=== PATIENT | female | born 1985 | race Caucasian/White ===

== ENCOUNTER 2017-09-05 12:33 | Emergency (ER) | payer OTHER ==
[2017-09-05] MEDS ORDERED: ACETAMINOPHEN 325 MG TABLET (FP) PO ONE (13:02)
[2017-09-05] MEDS ORDERED: ACETAMINOPHEN 325 MG TABLET (FP) ONE (13:22)
[2017-09-05 13:26] LABS: URINE APPEARANCE SLCLOUDY; URINE BILIRUBIN NEGATIVE (NEGATIVE); URINE BLOOD NEGATIVE (NEGATIVE); URINE COLOR YELLOW; URINE GLUCOSE (UA) NEGATIVE (NEGATIVE); URINE KETONE NEGATIVE (NEGATIVE); URINE LEUK ESTERASE 2+ (NEGATIVE); URINE NITRITE NEGATIVE (NEGATIVE); URINE PROTEIN NEGATIVE (NEGATIVE); URINE UROBILINOGEN NEGATIVE mg/dL (0.2-1.0)
[2017-09-05 13:27] LABS: EPI CELLS RARE /HPF (FEW); URINE MUCUS MANY
[2017-09-05 13:27] LABS: BASO % 0.6 % (0-2.0); EOS % 0.3 % (0-4.5); HEMATOCRIT 41.9 % (32.4-45.2); HEMOGLOBIN 13.9 GM/dL (10.7-15.3); LYMPH % 16.1 % (8-40); MCH 30.5 pg (25.7-33.7); MCHC 33.2 g/dl (32.0-36.0); MEAN CELL VOLUME 91.6 fl (80-96); MEAN PLT VOLUME 6.2 fl (7.5-11.1); PLATELET COUNT 374 K/MM3 (134-434); RBC 4.58 M/mm3 (3.60-5.2); RDW 13.3 % (11.6-15.6); WHITE BLOOD COUNT 17.7 K/mm3 (4.0-10.0)
[2017-09-05 13:35] VITALS: BMI 35.6
--- NOTE | 2017-09-05 13:39 | PDOC ---
History of Present Illness - General Stated Complaint: ABD PAIN Time Seen by Provider: 09/05/17 12:54 History Source: Patient - History of Present Illness Timing/Duration: reports: constant, getting worse Past History - Past Medical History Allergies/Adverse Reactions: Allergies Allergy/AdvReac Type Severity Reaction Status Date / Time No Known Allergies Allergy Verified 09/05/17 13:07 Home Medications: Ambulatory Orders Doxycycline Hyclate 100 mg PO BID #28 capsule 09/05/17 Elrod Carbonate [Eskalith -] 300 mg PO DAILY 09/05/17 Trazodone HCl 100 mg PO HS 09/05/17 Anemia: Yes (NOT CURRENTLY TAKING) Asthma: Yes Cardiac Disorders: No CVA: No COPD: No Diabetes: No GI Disorders: No Disorders: No HTN: No Hypercholesterolemia: No Kidney Stones: No Seizures: No Thyroid Disease: No - Surgical History Cholecystectomy: Yes (IN 2009) - Reproductive History PID: No - Suicide/Smoking/Psychosocial Hx Smoking Status: Yes Smoking History: Current every day smoker Have you smoked in the past 12 months: Yes Number of Cigarettes Smoked Daily: 5 'Breaking Loose' booklet given: 05/20/14 Hx Alcohol Use: Yes Drug/Substance Use Hx: Yes Substance Use Type: Alcohol, Cocaine, Marijuana, Tranquilizers Hx Substance Use Treatment: Yes Abd/GI Specific PMHX - Complaint Specific PMHX Hepatitis: No Pancreatitis: No Review of Systems - Review of Systems Constitutional: No: Chills, Fever ABD/GI: Yes: Nausea, Abdominal cramping. No: Blood Streaked Bowels, Constipated , Diarrhea, Vomiting : No: Dysuria, Discharge, Flank Pain, Hematuria *Physical Exam - Physical Exam General Appearance: Yes: Appropriately Dressed. No: Apparent Distress HEENT: positive: Normal Voice Neck: positive: Supple Respiratory/Chest: negative: Respiratory Distress Female Pelvic Exam: positive: other (moderate amount of yellow discharge in vault w/ L adnexal and CMT, c/f PID) Gastrointestinal/Abdominal: positive: Normal Bowel Sounds, Tender (to suprapubic area diffusely). negative: Distended, Guarding, Rebound Musculoskeletal: negative: CVA Tenderness Integumentary: positive: Dry, Warm Neurologic: positive: Fully Oriented, Alert, Normal Mood/Affect ED Treatment Course - LABORATORY CBC & Chemistry Diagram: 09/05/17 13:15 09/05/17 13:15 Medical Decision Making - Medical Decision Making 09/05/17 13:04 32-year-old female , (s/p elective AB), here with lower abdominal pain. Patient reports pressure-like suprapubic pain since last night that is mostly constant, associated with nausea, no vomiting. Denies change in bowel movements , dysuria, hematuria, vag discharge fever or chills. States she missed last month, but started spotting last week, which only lasted for several days. Not sure if she is currently . Sexually active w/ new male partner x 3 months. Does not use condoms See exam Pelvic pain Concern for PID given exam findings, r/o TOA, less likely appy -pain control -labs -US -?CT 09/05/17 14:27 WBC of 17. Started on abx regimen for PID. Pt signed out to resident at this point pending ultrasound. Aware that if ultrasound is negative for TOA, patient should get CT rule out appy. If rest of workup unremarkable, patient to be treated for PID with doxy 2 weeks. No foul-smelling discharge at this time to suspect BV so will not add flagyl. Cxs sent 09/06/17 17:28 *DC/Admit/Observation/Transfer Diagnosis at time of Disposition: PID (acute pelvic inflammatory disease) - Discharge Dispostion Disposition: HOME - Prescriptions Prescriptions: Doxycycline Hyclate 100 mg PO BID #28 capsule - Referrals Referrals: Darya Clay [Primary Care Provider] - - Patient Instructions Printed Discharge Instructions: DI for Pelvic Inflammatory Disease Additional Instructions: Please return if any increase in pain, fever, or other concerning symptoms. - Post Discharge Activity
[2017-09-05] MEDS ORDERED: DOXYCYCLINE HYCLATE 100 MG CAPSULE PO ONE ×2 (13:53→14:15)
[2017-09-05] MEDS ORDERED: AZITHROMYCIN 250 MG TABLET PO ONE (13:53)
[2017-09-05] MEDS ORDERED: SODIUM CHLORIDE 1,000 ML IV STA (13:55)
[2017-09-05 13:58] LABS: ANION GAP 9 (8-16); BLOOD UREA NITROGEN 13 mg/dL (7-18); CALCIUM 9.3 mg/dL (8.5-10.1); CHLORIDE 107 mmol/L (98-107); CO2 24 mmol/L (21-32); CREATININE 0.7 mg/dL (0.55-1.02); GLUCOSE,RANDOM 86 mg/dL (74-106); POTASSIUM 4.2 mmol/L (3.5-5.1); SGOT/AST 17 U/L (15-37); SGPT/ALT 62 U/L (12-78); SODIUM 140 mmol/L (136-145)
[2017-09-05 14:00] LABS: ALK PHOS 93 U/L (45-117); BILIRUBIN,TOTAL 0.6 mg/dL (0.2-1.0); TOT PROT 7.5 g/dl (6.4-8.2)
[2017-09-05] MEDS ORDERED: cefTRIAXone SODIUM 1 GM VIAL ONE (14:15)
[2017-09-05] MEDS ORDERED: morphine CARPU-JECT 2 MG/1 ML DISP.SYRIN IVPUSH ONE (18:42)
[2017-09-05] MEDS ORDERED: morphine CARPU-JECT 10 MG/1 ML DISP.SYRIN ONE (18:43)
--- NOTE | 2017-09-05 19:16 | PDOC ---
*Physical Exam - Vital Signs Last Vital Signs Temp Pulse Resp BP Pulse Ox 98.5 F 99 H 18 118/67 99 09/05/17 13:10 09/05/17 17:06 09/05/17 13:10 09/05/17 17:06 09/05/17 17:06 ED Treatment Course - LABORATORY CBC & Chemistry Diagram: 09/05/17 13:15 09/05/17 13:15 - ADDITIONAL ORDERS Additional order review: Laboratory Results 09/05/17 09/05/17 09/05/17 13:22 13:15 13:15 Sodium 140 Potassium 4.2 Chloride 107 Carbon Dioxide 24 Anion Gap 9 BUN 13 Creatinine 0.7 Creat Clearance w eGFR > 60 Random Glucose 86 D Calcium 9.3 Total Bilirubin 0.6 D AST 17 D ALT 62 D Alkaline Phosphatase 93 Total Protein 7.5 Albumin 4.0 Serum , Qual Negative Urine Color Yellow Urine Appearance Slcloudy Urine pH 5.0 Ur Specific [place] 1.025 Urine Protein Negative Urine Glucose (UA) Negative Urine Ketones Negative Urine Blood Negative Urine Nitrite Negative Urine Bilirubin Negative Urine Urobilinogen Negative Ur Leukocyte Esterase 1+ H Urine WBC (Auto) 5 Urine RBC (Auto) 2 Ur Epithelial Cells Rare Urine Mucus Many 09/05/17 13:15 RBC 4.58 MCV 91.6 MCHC 33.2 RDW 13.3 MPV 6.2 L Neutrophils % 75.0 D Lymphocytes % 16.1 D Monocytes % 8.0 Eosinophils % 0.3 Basophils % 0.6 - Medications Given in the ED: ED Medications Discontinued Medications Generic Name Dose Route Start Last Admin Trade Name Freq PRN Reason Stop Dose Admin Acetaminophen 650 mg 09/05/17 13:02 09/05/17 13:24 Tylenol - PO 09/05/17 13:03 650 mg ONCE ONE Administration Azithromycin 1,000 mg 09/05/17 13:53 09/05/17 16:49 Zithromax - PO 09/05/17 13:54 Not Given ONCE ONE Ceftriaxone Sodium 250 mg 09/05/17 13:53 09/05/17 14:29 Rocephin - IVPUSH 09/05/17 13:54 250 mg ONCE ONE Administration Doxycycline Hyclate 100 mg 09/05/17 13:53 09/05/17 14:29 Vibramycin - PO 09/05/17 13:54 100 mg ONCE ONE Administration Sodium Chloride 1,000 mls @ 1,000 mls/hr 09/05/17 13:55 09/05/17 14:29 Normal Saline - IV 09/05/17 14:54 1,000 mls/hr ASDIR STA Administration Morphine Sulfate 2 mg 09/05/17 18:42 09/05/17 18:47 Morphine Injection - IVPUSH 09/05/17 18:43 2 mg ONCE ONE Administration Medical Decision Making - Medical Decision Making 09/05/17 19:15 Care taken over from Dr. Gordon. 09/05/17 19:35 CT abdomen / pelvis and Transvaginal US negative for acute findings. Will d/c patient to home on doxycycline per previous team's plan for PID treatment. *DC/Admit/Observation/Transfer Diagnosis at time of Disposition: PID (acute pelvic inflammatory disease) - Discharge Dispostion Disposition: HOME - Prescriptions Prescriptions: Doxycycline Hyclate 100 mg PO BID #28 capsule - Referrals Referrals: Darya Clay [Primary Care Provider] - - Patient Instructions Printed Discharge Instructions: DI for Pelvic Inflammatory Disease Additional Instructions: Please return if any increase in pain, fever, or other concerning symptoms. - Post Discharge Activity
[2017-09-05 20:01] VITALS: BP 141/81; PULSE 89; TEMP 98.9
--- NOTE | 2017-09-06 07:32 | PDOC ---
*Physical Exam - Vital Signs Last Vital Signs Temp Pulse Resp BP Pulse Ox 98.9 F 89 17 141/81 98 09/05/17 20:01 09/05/17 20:01 09/05/17 20:01 09/05/17 20:01 09/05/17 20:01 ED Treatment Course - LABORATORY CBC & Chemistry Diagram: 09/05/17 13:15 09/05/17 13:15 - ADDITIONAL ORDERS Additional order review: 09/05/17 13:15 RBC 4.58 MCV 91.6 MCHC 33.2 RDW 13.3 MPV 6.2 L Neutrophils % 75.0 D Lymphocytes % 16.1 D Monocytes % 8.0 Eosinophils % 0.3 Basophils % 0.6 - Medications Given in the ED: ED Medications Discontinued Medications Generic Name Dose Route Start Last Admin Trade Name Freq PRN Reason Stop Dose Admin Acetaminophen 650 mg 09/05/17 13:02 09/05/17 13:24 Tylenol - PO 09/05/17 13:03 650 mg ONCE ONE Administration Azithromycin 1,000 mg 09/05/17 13:53 09/05/17 16:49 Zithromax - PO 09/05/17 13:54 Not Given ONCE ONE Ceftriaxone Sodium 250 mg 09/05/17 13:53 09/05/17 14:29 Rocephin - IVPUSH 09/05/17 13:54 250 mg ONCE ONE Administration Doxycycline Hyclate 100 mg 09/05/17 13:53 09/05/17 14:29 Vibramycin - PO 09/05/17 13:54 100 mg ONCE ONE Administration Sodium Chloride 1,000 mls @ 1,000 mls/hr 09/05/17 13:55 09/05/17 14:29 Normal Saline - IV 09/05/17 14:54 1,000 mls/hr ASDIR STA Administration Morphine Sulfate 2 mg 09/05/17 18:42 09/05/17 18:47 Morphine Injection - IVPUSH 09/05/17 18:43 2 mg ONCE ONE Administration Medical Decision Making - Medical Decision Making 09/06/17 07:31 I independently examined and evaluated this patient in conjunction with the mid- level practitioner. I reviewed the case and agree with the mid-level practitioner's assessment, diagnosis and disposition. Plan US/CT if no acute findings d/c with abx and close F/U *DC/Admit/Observation/Transfer Diagnosis at time of Disposition: PID (acute pelvic inflammatory disease) - Discharge Dispostion Disposition: HOME - Prescriptions Prescriptions: Doxycycline Hyclate 100 mg PO BID #28 capsule - Referrals Referrals: Darya Clay [Primary Care Provider] - - Patient Instructions Printed Discharge Instructions: DI for Pelvic Inflammatory Disease Additional Instructions: Please return if any increase in pain, fever, or other concerning symptoms. - Post Discharge Activity
== END 2017-09-05 20:01 | disposition home or self-care (01) ==
LOC: JER 12:33
PROC: 3E033NZ Introduction of Analgesics, Hypnotics, Sedatives into Peripheral Vein, Percutaneous Approach (ICD-10-PCS; principal; 2017-09-05)
PROC: 3E03329 Introduction of Other Anti-infective into Peripheral Vein, Percutaneous Approach (ICD-10-PCS; 2017-09-05)
DX: N73.9 Female pelvic inflammatory disease, unspecified (principal)
CPT/HCPCS: 36415; 74177-TC; 76830-TC; 76856-TC; 80053; 81003; 81015; 84703; 85025; 87491; 87591; 96374; 96375; 99284-25